=== PATIENT | male | born 1965 | race Hispanic/Latino ===

== ENCOUNTER 2020-05-03 10:54 | Emergency (ER) | payer OTHER ==
--- NOTE | 2020-05-03 12:05 | RAD ---
XR CHEST 1 VIEW HISTORY: 54 years Male cough, fever COMPARISON: None. TECHNIQUE: Single AP view of the chest. FINDINGS: Lungs: Hazy attenuation in the left lower lobe, concerning for airspace disease. No evidence of a pleural effusion or pneumothorax. Heart/Mediastinum: Cardiomediastinal silhouette is unremarkable. Bones: No acute abnormality detected. IMPRESSION: Findings concerning for left lower lobe airspace disease. Pneumonia would be of consideration in the appropriate setting. Electronically signed by: Gilles Joel MD 05/03/2020 12:03 PM [facility]
--- NOTE | 2020-05-03 12:18 | ED.PDOC ---
History of Present Illness - General Chief Complaint: General Stated Complaint: cough,fever,body aches,fatigue Time Seen by Provider: 05/03/20 11:21 Source: patient Exam Limitations: no limitations - History of Present Illness Initial Comments: The patient is a 54-year-old male presenting to the emergency room secondary to feeling poorly for the last couple of weeks. He has had some cough and a mild sore throat. No real nausea or vomiting. He has had some intermittent fevers. No chest pain. He is concerned he may have the flu. Vital signs appear within normal limits. He does not appear to be in significant distress. Timing/Duration: other - Several weeks Severity: moderate Improving Factors: nothing Worsening Factors: nothing Associated Symptoms: cough, diaphoresis, fever/chills, loss of appetite, malaise Allergies/Adverse Reactions: Allergies NO KNOWN ALLERGY Allergy (Verified 05/03/20 11:17) Home Medications: Ambulatory Orders Amoxicillin & Pot Clavulanate [Augmentin Tab] 875 mg PO BID #20 tab 05/03/20 Oseltamivir Capsule [Tamiflu] 75 mg PO BID 5 Days #10 capsule 05/03/20 Review of Systems - Review of Systems Constitutional: States: fever, malaise EENTM: States: nose congestion, throat pain Respiratory: States: cough, short of breath - Mild Cardiology: States: no symptoms reported Gastrointestinal/Abdominal: States: no symptoms reported Genitourinary: States: no symptoms reported Musculoskeletal: States: see HPI - Some body aches Skin: States: no symptoms reported Neurological: States: headache - Intermittent Endocrine: States: no symptoms reported Hematologic/Lymphatic: States: no symptoms reported All other Systems: No Change from Baseline Past Medical History (General) - Patient Medical History Hx Stroke: No Hx Congestive Heart Failure: No Hx Hypertension: Yes Hx Diabetes: No Surgical History: no surgical history - Vaccination History Hx Influenza Vaccination: Yes Hx Pneumococcal Vaccination: No - Social History Hx Tobacco Use: No Family Medical History - Family History Father Family History: Unknown Living Status: Unknown Physical Exam - Physical Exam General Appearance: Alert, Comfortable, No apparent distress Eye Exam: bilateral normal Ears, Nose, Throat: hearing grossly normal, nasal congestion, pharyngeal erythema Neck: full range of motion, supple Respiratory: no respiratory distress, no accessory muscle use, other - Possibly some mild left lower lobe Rales Cardiovascular/Chest: normal peripheral pulses, regular rate, rhythm, no edema Peripheral Pulses: radial,right: 2+, radial,left: 2+ Gastrointestinal/Abdominal: non tender, soft Rectal Exam: deferred Back Exam: no CVA tenderness, no vertebral tenderness Extremity: non-tender, normal inspection, no pedal edema, normal capillary refil l 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 The patient has tested positive for influenza B. He additionally appears to have a small left lower lobe pneumonia on x-ray. He did also test positive for strep throat. The patient is going to be placed on Augmentin for the next 10 days. Additionally he is going to be written for a course of Tamiflu. He needs to keep himself well-hydrated. He needs to follow back up with his primary care doctor in a couple of weeks and have a repeat chest x-ray done. ER warnings given. bria aleman [id number] - Results/Orders Results/Orders: Rapid strep is positive. Rapid Covid is negative. Influenza B is positive. Chest x-ray shows left lower lobe infiltrate. See report for details. Departure - Departure Clinical Impression: Strep throat, Influenza B Left lower lobe pneumonia Qualifiers: Pneumonia type: due to unspecified organism Qualified Code(s): J18.9 - Pneumonia, unspecified organism Disposition: Discharge to Home or Self Care Condition: Fair Departure Forms: ED Discharge - Pt. Copy, Patient Portal Self Enrollment Instructions: Flu, Sore Throat, Adult (DC), Pneumonia, Adult (DC) Diet: bland diet Activity: increase activity as tolerated Referrals: Pascual Pearce MD [Primary Care Provider] - 1-2 Weeks Prescriptions: Amoxicillin & Pot Clavulanate [Augmentin Tab] 875 mg PO BID #20 tab Oseltamivir Capsule [Tamiflu] 75 mg PO BID 5 Days #10 capsule Home Medications: Ambulatory Orders Amoxicillin & Pot Clavulanate [Augmentin Tab] 875 mg PO BID #20 tab 05/03/20 Oseltamivir Capsule [Tamiflu] 75 mg PO BID 5 Days #10 capsule 05/03/20 Additional Instructions: The patient is a 54-year-old male presented emergency room secondary to multiple symptoms last week or 2. The patient has tested positive for influenza B. He additionally appears to have a small left lower lobe pneumonia on x-ray. He did also test positive for strep throat. The patient is going to be placed on Augmentin for the next 10 days. Additionally he is going to be written for a course of Tamiflu. He needs to keep himself well-hydrated. He needs to follow back up with his primary care doctor in a couple of weeks and have a repeat chest x-ray done. ER warnings given.
[2020-05-03 12:33] VITALS: BP 119/82; TEMP 98.2; O2SAT 96
== END 2020-05-03 12:32 | disposition home or self-care (01) ==
LOC: ER 10:54
DX: J18.9 Pneumonia, unspecified organism (principal); J02.0 Streptococcal pharyngitis; J10.1 Influenza due to other identified influenza virus with other respiratory manifestations; I10 Essential (primary) hypertension; Z20.822 Contact with and (suspected) exposure to COVID-19